=== PATIENT | male | born 1945 | race American Indian/Alaskan Native ===

== ENCOUNTER 2017-03-18 11:11 | Emergency (ER) | payer MEDICARE ==
[2017-03-18 11:33] VITALS: BP 120/75
[2017-03-18] MEDS ORDERED: DELTASONE PO ONE (13:48)
[2017-03-18] MEDS ORDERED: ULTRAM PO ONE (13:49)
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
== END 2017-03-18 14:11 | disposition home or self-care (01) ==
LOC: ED 11:11
DX: Z76.0 Encounter for issue of repeat prescription (principal); Z87.891 Personal history of nicotine dependence; M79.1 Myalgia
CPT/HCPCS: 99282; J7512